=== PATIENT | female | born 1940 | race African-American/Black ===

== ENCOUNTER 2024-08-18 15:07 | Inpatient (IN) | payer OTHER, MEDICARE ==
[~2024-08-18] VITALS: Ht 162.6 cm; Wt 67.1 kg
[2024-08-18 16:28] LABS: BG BASE EXCESS 3.7 mmol/L (-2.0-3.0); BG CARBOXYHEMOGLOBIN 1.9 % (0.5-1.5); BG DEOXYHEMOGLOBIN 0.2 % (0.0-5.0); BG FRACTION INSPIRED OXYGEN 36; BG HCO3 ACT 27.2 mmol/L (21.0-28.0); BG METHEMOGLOBIN 0.3 % (0.5-1.5); BG OXYGEN SATURATION 99.8 % (94.0-98.0); BG OXYHEMOGLOBIN 97.6 % (94.0-98.0); BG PCO2 36.4 mmHg (32.0-45.0); BG PH 7.492 (7.350-7.450); BG PO2 170.5 mmHg (83.0-108.0); BG SAMPLE SITE RIGHT RADIAL; BG TOTAL HEMOGLOBIN 8.3 g/dL (12.0-16.0); BG VENT MODE NASAL CANNULA
[2024-08-18 16:28] LABS: BASOPHILS % 1.1 % (0.0-2.0); EOSINOPHILS % 1.1 % (0.0-5.0); HEMATOCRIT. 27.4 % (36.0-48.0); HEMOGLOBIN. 8.2 g/dL (12.0-16.0); LYMPHOCYTES % 10.4 % (20.0-50.0); MEAN CORPUSCULAR HGB CONC 29.9 g/dL (31.0-37.0); MEAN CORPUSCULAR VOLUME 76.9 fL (81.0-99.0); MEAN PLATELET VOLUME 9.3 fl (7.4-10.4); MONOCYTES % 10.4 % (2.0-8.0); PLATELET 237 x1000/uL (130-400); RED BLOOD CELL COUNT 3.56 mill/uL (4.2-5.4); RED CELL DISTRIBUTION WIDTH 23.4 % (11.6-14.6); WHITE BLOOD COUNT 4.5 x1000/uL (4.5-11.0)
[2024-08-18] MEDS: CEFTRIAXONE 1GM/50ML 50 ML IV NR (16:35)
[2024-08-18 16:41] LABS: ADD RBC MORPHOLOGY YES; DIFFERENTIAL COMMENT 1
[2024-08-18] MEDS: AZITHROMYCIN 500MG/250ML 250 ML IV NR (17:00)
[2024-08-18 17:28] LABS: CARBON DIOXIDE 30 mEq/L (21-32); CHLORIDE 100 mEq/L (98-107); POTASSIUM 4.1 mEq/L (3.5-5.1); SODIUM 137 mEq/L (136-145)
[2024-08-18 17:29] LABS: CALCIUM 8.9 mg/dL (8.7-10.4)
[2024-08-18 17:33] LABS: CREATININE 1.3 mg/dL (0.6-1.0); GLUCOSE 181 mg/dL (70-105); TROPONIN I HIGH SENSITIVITY 12 ng/L (3.0-34)
[2024-08-18 17:34] LABS: UREA NITROGEN BLOOD 24 mg/dL (9-23)
[2024-08-18 17:36] VITALS: PULSE 67; RESP 20
[2024-08-18] MEDS ORDERED: MIDAZOLAM 100MG/100ML PMX 100 ML IV PRN (18:00)
[2024-08-18] MEDS: MIDAZOLAM 100MG/100ML PMX 100 ML IV PRN (18:09)
[2024-08-18 18:52] VITALS: PULSE 59; RESP 20
[2024-08-18 20:48] LABS: ANISOCYTOSIS 2+; HYPOCHROMASIA 1+; MICROCYTOSIS 1+; PLATELET ESTIMATE NORMAL
[2024-08-18 20:55] VITALS: PULSE 62; RESP 20; O2SAT 100
[2024-08-18] MEDS ORDERED: PROPOFOL 10MG/ML 100ML 100 ML IV PRN (22:00)
[2024-08-18 22:27] VITALS: PULSE 60; RESP 20; O2SAT 100
[2024-08-18] MEDS ORDERED: METHYLPREDNISOLONE SOD SUCC 125MG/2ML (ACT-O-VIAL) IV NR (23:45)
[2024-08-19] VITALS (83 sets, daily range): BP systolic 110–152; BP diastolic 49–93; PULSE 50–80; RESP 13–30; TEMP 36.2512–37.28076; O2SAT 93–100
[2024-08-19 01:46] LABS: BG BASE EXCESS 1.4 mmol/L (-2.0-3.0); BG CARBOXYHEMOGLOBIN 1.9 % (0.5-1.5); BG DEOXYHEMOGLOBIN 2.7 % (0.0-5.0); BG FRACTION INSPIRED OXYGEN 100; BG HCO3 ACT 24.3 mmol/L (21.0-28.0); BG METHEMOGLOBIN 0.2 % (0.5-1.5); BG OXYGEN SATURATION 97.2 % (94.0-98.0); BG OXYHEMOGLOBIN 95.2 % (94.0-98.0); BG PCO2 30.9 mmHg (32.0-45.0); BG PH 7.513 (7.350-7.450); BG PO2 92.4 mmHg (83.0-108.0); BG SAMPLE SITE RIGHT BRACHIAL; BG TOTAL HEMOGLOBIN 7.7 g/dL (12.0-16.0); BG VENT MODE VENT - AC
[2024-08-19] MEDS ORDERED: ONDANSETRON HCL 4MG/2ML INJ IV PRN (03:00)
[2024-08-19] MEDS: METHYLPREDNISOLONE SOD SUCC 40MG/ML (ACT-O-VIAL) IV SCH (06:12)
[2024-08-19] MEDS: DEXT 5%/0.45% NACL 1000ML 1,000 ML IV SCH (06:15)
[2024-08-19] MEDS: FUROSEMIDE 40MG/4ML VIAL IVP SCH (08:52)
[2024-08-19] MEDS: ASPIRIN 81MG TABLET PO SCH (08:53)
[2024-08-19] MEDS: ENOXAPARIN 60MG/0.6ML SYR SUBCUT NR (09:28)
[2024-08-19] MEDS: IPRATROPIUM/ALBUTEROL 0.5-3(2.5)MG/3ML NEB HHN SCH (14:38)
[2024-08-19 15:16] LABS: BG BASE EXCESS 2.9 mmol/L (-2.0-3.0); BG CARBOXYHEMOGLOBIN 0.2 % (0.5-1.5); BG DEOXYHEMOGLOBIN 0.7 % (0.0-5.0); BG HCO3 ACT 24.6 mmol/L (21.0-28.0); BG METHEMOGLOBIN 0.3 % (0.5-1.5); BG OXYGEN SATURATION 99.3 % (94.0-98.0); BG OXYHEMOGLOBIN 98.8 % (94.0-98.0); BG PCO2 27.7 mmHg (32.0-45.0); BG PH 7.566 (7.350-7.450); BG PO2 159.2 mmHg (83.0-108.0); BG SAMPLE SITE RIGHT BRACHIAL; BG TOTAL HEMOGLOBIN 9.7 g/dL (12.0-16.0); BG VENT MODE VENT - AC
[2024-08-19] MEDS: CEFTRIAXONE 2GM/50ML 50 ML IV SCH (17:15)
[2024-08-19] MEDS: AZITHROMYCIN 500MG/250ML 250 ML IV SCH (17:16)
[2024-08-19 18:29] LABS: HEMATOCRIT. 27.7 % (36.0-48.0); HEMOGLOBIN. 8.6 g/dL (12.0-16.0); MEAN CORPUSCULAR HEMOGLOBIN 23.4 pg (28.0-32.0); MEAN CORPUSCULAR HGB CONC 31.1 g/dL (31.0-37.0); MEAN CORPUSCULAR VOLUME 75.2 fL (81.0-99.0); MEAN PLATELET VOLUME 9.3 fl (7.4-10.4); PLATELET 274 x1000/uL (130-400); RED BLOOD CELL COUNT 3.69 mill/uL (4.2-5.4); RED CELL DISTRIBUTION WIDTH 23.3 % (11.6-14.6); WHITE BLOOD COUNT 8.9 x1000/uL (4.5-11.0)
[2024-08-19 18:41] LABS: BG BASE EXCESS -0.6 mmol/L (-2.0-3.0); BG DEOXYHEMOGLOBIN 5.2 % (0.0-5.0); BG FRACTION INSPIRED OXYGEN 40; BG HCO3 ACT 21.7 mmol/L (21.0-28.0); BG METHEMOGLOBIN 0.3 % (0.5-1.5); BG OXYGEN SATURATION 94.7 % (94.0-98.0); BG OXYHEMOGLOBIN 93.5 % (94.0-98.0); BG PH 7.522 (7.350-7.450); BG PO2 76.5 mmHg (83.0-108.0); BG SAMPLE SITE RIGHT BRACHIAL; BG TOTAL HEMOGLOBIN 8.8 g/dL (12.0-16.0); BG TOTAL RESPIRATORY RATE 25 b/min; BG VENT MODE VENT - AC
[2024-08-19 18:44] LABS: DIFFERENTIAL COMMENT 1
[2024-08-19 18:47] LABS: CHLORIDE 103 mEq/L (98-107); POTASSIUM 4.4 mEq/L (3.5-5.1); SODIUM 137 mEq/L (136-145)
[2024-08-19 18:48] LABS: CALCIUM 9.3 mg/dL (8.7-10.4); CARBON DIOXIDE 24 mEq/L (21-32)
[2024-08-19 18:49] LABS: INR 1.2; PROTHROMBIN TIME 13.6 sec (9.6-11.0)
[2024-08-19 18:53] LABS: GLUCOSE 188 mg/dL (70-105)
[2024-08-19 18:54] LABS: UREA NITROGEN BLOOD 27 mg/dL (9-23)
[2024-08-19 18:56] LABS: PHOSPHORUS 4.4 mg/dL (2.5-4.9)
[2024-08-19 18:57] LABS: CREATININE 2.3 mg/dL (0.6-1.0)
[2024-08-19 19:16] LABS: ANISOCYTOSIS 2+; GIANT PLATELETS 1+; HYPOCHROMASIA 1+; MICROCYTOSIS 1+; PLATELET ESTIMATE NORMAL
[2024-08-19] MEDS: FENTANYL CITRATE/PF 50MCG/ML 2ML VIAL IV PRN (22:55)
[2024-08-19] MEDS: ATORVASTATIN CALCIUM 20MG TABLET PO SCH (22:57)
[2024-08-20] VITALS (94 sets, daily range): BP systolic 37–145; BP diastolic 19–99; PULSE 65–114; RESP 11–31; TEMP 36.83628–37.33632; O2SAT 88–100
[2024-08-20] MEDS: ENOXAPARIN 60MG/0.6ML SYR SUBCUT SCH (08:28)
[2024-08-20 10:21] LABS: BG BASE EXCESS -1.1 mmol/L (-2.0-3.0); BG CARBOXYHEMOGLOBIN 0.9 % (0.5-1.5); BG DEOXYHEMOGLOBIN 1.3 % (0.0-5.0); BG HCO3 ACT 22.1 mmol/L (21.0-28.0); BG METHEMOGLOBIN 0.3 % (0.5-1.5); BG OXYGEN SATURATION 98.7 % (94.0-98.0); BG OXYHEMOGLOBIN 97.5 % (94.0-98.0); BG PH 7.471 (7.350-7.450); BG PO2 129.9 mmHg (83.0-108.0); BG SAMPLE SITE RIGHT BRACHIAL; BG TOTAL HEMOGLOBIN 8.9 g/dL (12.0-16.0); BG VENT MODE VENT - CPAP
[2024-08-20] MEDS ORDERED: ROSU40TA PO (12:58)
[2024-08-20] MEDS ORDERED: AMLO-337 PO (12:58)
[2024-08-20] MEDS ORDERED: APIX5TAB PO (12:58)
[2024-08-20] MEDS ORDERED: METH-371 PO (12:58)
[2024-08-20] MEDS ORDERED: SERT50TA PO (12:58)
[2024-08-20] MEDS ORDERED: CLOP-31 PO (12:58)
[2024-08-20] MEDS ORDERED: GABA-1180 PO (12:58)
[2024-08-20] MEDS ORDERED: PANT40SU PO (12:58)
[2024-08-20] MEDS ORDERED: CARV12.545 PO (12:58)
[2024-08-20] MEDS ORDERED: FURO-151 PO (12:58)
[2024-08-20] MEDS ORDERED: EZET10TA81 PO (12:58)
[2024-08-20 15:48] LABS: HEMATOCRIT. 25.9 % (36.0-48.0); HEMOGLOBIN. 7.9 g/dL (12.0-16.0); MEAN CORPUSCULAR HGB CONC 30.4 g/dL (31.0-37.0); MEAN CORPUSCULAR VOLUME 75.6 fL (81.0-99.0); MEAN PLATELET VOLUME 9.4 fl (7.4-10.4); PLATELET 271 x1000/uL (130-400); RED BLOOD CELL COUNT 3.42 mill/uL (4.2-5.4); WHITE BLOOD COUNT 14.2 x1000/uL (4.5-11.0)
[2024-08-20 15:50] LABS: DIFFERENTIAL COMMENT 1
[2024-08-20 16:00] LABS: POTASSIUM 4.5 mEq/L (3.5-5.1)
[2024-08-20 16:01] LABS: CALCIUM 8.6 mg/dL (8.7-10.4)
[2024-08-20 16:05] LABS: CREATININE 2.8 mg/dL (0.6-1.0)
[2024-08-20] MEDS: SODIUM CHLORIDE 0.9% (SEPSIS BOLUS) IV ONE (17:57)
[2024-08-20 18:05] LABS: BG BASE EXCESS -14.7 mmol/L (-2.0-3.0); BG CARBOXYHEMOGLOBIN 0.2 % (0.5-1.5); BG DEOXYHEMOGLOBIN 0.7 % (0.0-5.0); BG HCO3 ACT 11.4 mmol/L (21.0-28.0); BG METHEMOGLOBIN 0.3 % (0.5-1.5); BG OXYGEN SATURATION 99.3 % (94.0-98.0); BG OXYHEMOGLOBIN 98.8 % (94.0-98.0); BG PCO2 27.9 mmHg (32.0-45.0); BG PO2 172.1 mmHg (83.0-108.0); BG SAMPLE SITE RIGHT BRACHIAL; BG TOTAL HEMOGLOBIN 9.7 g/dL (12.0-16.0); BG VENT MODE MASK - NRB
[2024-08-20] MEDS: SODIUM BICARBONATE 8.4% 50MEQ/50ML SYR IV NR (18:14)
[2024-08-20 18:27] LABS: ANISOCYTOSIS 2+; HYPOCHROMASIA 1+; MICROCYTOSIS 1+; PLATELET ESTIMATE NORMAL
[2024-08-20 18:28] LABS: GIANT PLATELETS 1+; OVALOCYTES 1+
[2024-08-21] VITALS (78 sets, daily range): BP systolic 98–149; BP diastolic 52–118; PULSE 72–99; RESP 6–23; TEMP 36.44736–36.55848; O2SAT 74–100
[2024-08-21] MEDS: METHYLPREDNISOLONE SOD SUCC 40MG/ML (ACT-O-VIAL) IV SCH (08:44)
[2024-08-21] MEDS: PANTOPRAZOLE SODIUM 40 MG/VIAL IV SCH (08:45)
[2024-08-21] MEDS: ENOXAPARIN 60MG/0.6ML SYR SUBCUT SCH (08:45)
[2024-08-21] MEDS: FENTANYL CITRATE/PF 50MCG/ML 2ML VIAL IV NR (20:14)
[2024-08-21] MEDS: QUETIAPINE FUMARATE 25MG TABLET PO SCH (21:45)
[2024-08-21] MEDS: NALOXONE HCL 0.4MG/ML 1ML VIAL IV NR (22:18)
[2024-08-22] VITALS (15 sets, daily range): BP systolic 116–158; BP diastolic 70–88; PULSE 82–104; RESP 10–20; TEMP 36.114–36.6696; O2SAT 77–100
[2024-08-22] MEDS: ACETAMINOPHEN 325MG TABLET PO PRN (04:59)
[2024-08-22 05:39] LABS: CARBON DIOXIDE 27 mEq/L (21-32); CHLORIDE 100 mEq/L (98-107); POTASSIUM 4.1 mEq/L (3.5-5.1); SODIUM 137 mEq/L (136-145)
[2024-08-22 05:41] LABS: CALCIUM 8.2 mg/dL (8.7-10.4)
[2024-08-22 05:45] LABS: CREATININE 2.8 mg/dL (0.6-1.0); GLUCOSE 107 mg/dL (70-105); UREA NITROGEN BLOOD 46 mg/dL (9-23)
[2024-08-22] MEDS: BLOOD SUGAR DIAGNOSTIC STRIP TEST SCH (05:52)
[2024-08-22 06:58] LABS: TROPONIN I HIGH SENSITIVITY 40 ng/L (3.0-34)
[2024-08-22] MEDS: AMLODIPINE 5MG TABLET PO SCH (09:39)
[2024-08-22 10:36] LABS: DIFFERENTIAL COMMENT 1; HEMATOCRIT. 25.2 % (36.0-48.0); HEMOGLOBIN. 7.6 g/dL (12.0-16.0); MEAN CORPUSCULAR HEMOGLOBIN 23.1 pg (28.0-32.0); MEAN CORPUSCULAR HGB CONC 30.4 g/dL (31.0-37.0); MEAN CORPUSCULAR VOLUME 75.9 fL (81.0-99.0); MEAN PLATELET VOLUME 9.7 fl (7.4-10.4); PLATELET 227 x1000/uL (130-400); RED BLOOD CELL COUNT 3.31 mill/uL (4.2-5.4); RED CELL DISTRIBUTION WIDTH 23.8 % (11.6-14.6)
[2024-08-22] MEDS ORDERED: MORPHINE SULFATE 2 MG/ML INJ (NOT FOR IM USE) IV PRN (14:00)
[2024-08-22] MEDS ORDERED: NALOXONE HCL 0.4MG/ML VIAL IV PRN (15:15)
[2024-08-22] MEDS: MORPHINE SULFATE 2 MG/ML INJ (NOT FOR IM USE) IV NR (15:57)
[2024-08-22] MEDS: MORPHINE SULFATE 2 MG/ML INJ (NOT FOR IM USE) IV PRN (19:59)
[2024-08-22 20:21] LABS: HYPOCHROMASIA 1+; MICROCYTOSIS 1+; PLATELET ESTIMATE NORMAL
[2024-08-23] VITALS (15 sets, daily range): BP systolic 129–154; BP diastolic 60–97; PULSE 76–95; RESP 7–18; TEMP 36.33624–36.6696; O2SAT 95–100
[2024-08-23 05:29] LABS: POTASSIUM 3.6 mEq/L (3.5-5.1)
[2024-08-23 05:30] LABS: CALCIUM 8.7 mg/dL (8.7-10.4)
[2024-08-23 05:35] LABS: CREATININE 2.6 mg/dL (0.6-1.0)
[2024-08-23 05:51] LABS: HEMATOCRIT. 25.1 % (36.0-48.0); HEMOGLOBIN. 7.7 g/dL (12.0-16.0); MEAN CORPUSCULAR HGB CONC 30.6 g/dL (31.0-37.0); MEAN CORPUSCULAR VOLUME 75.2 fL (81.0-99.0); MEAN PLATELET VOLUME 9.3 fl (7.4-10.4); PLATELET 199 x1000/uL (130-400); RED BLOOD CELL COUNT 3.34 mill/uL (4.2-5.4); RED CELL DISTRIBUTION WIDTH 23.6 % (11.6-14.6); WHITE BLOOD COUNT 8.4 x1000/uL (4.5-11.0)
[2024-08-23 06:43] LABS: DIFFERENTIAL COMMENT 1
[2024-08-23] MEDS: FUROSEMIDE 40MG/4ML VIAL IVP NR (09:32)
[2024-08-23 16:47] LABS: HYPOCHROMASIA 1+; MICROCYTOSIS 2+; PLATELET ESTIMATE NORMAL
[2024-08-24] VITALS (15 sets, daily range): BP systolic 133–172; BP diastolic 51–88; PULSE 72–85; RESP 7–17; TEMP 36.3918–36.72516; O2SAT 95–100
[2024-08-24] MEDS: FAMOTIDINE 20MG/2ML VIAL IV SCH (09:17)
[2024-08-24 10:36] LABS: HEMATOCRIT. 26.9 % (36.0-48.0); MEAN CORPUSCULAR HEMOGLOBIN 22.3 pg (28.0-32.0); MEAN CORPUSCULAR HGB CONC 29.7 g/dL (31.0-37.0); MEAN CORPUSCULAR VOLUME 75.3 fL (81.0-99.0); MEAN PLATELET VOLUME 9.1 fl (7.4-10.4); PLATELET 178 x1000/uL (130-400); RED BLOOD CELL COUNT 3.57 mill/uL (4.2-5.4); RED CELL DISTRIBUTION WIDTH 24.2 % (11.6-14.6)
[2024-08-24 10:51] LABS: DIFFERENTIAL COMMENT 1
[2024-08-24 11:21] LABS: POTASSIUM 3.2 mEq/L (3.5-5.1)
[2024-08-24 11:22] LABS: CALCIUM 8.5 mg/dL (8.7-10.4)
[2024-08-24 11:29] LABS: CREATININE 1.7 mg/dL (0.6-1.0)
[2024-08-24] MEDS ORDERED: IPRATROPIUM/ALBUTEROL 0.5-3(2.5)MG/3ML NEB HHN SCH (15:15)
[2024-08-24] MEDS ORDERED: MORPHINE SULFATE 250 MG in DEXT 5% WATER 240 ML IV PRN (15:45)
[2024-08-24] MEDS: MORPHINE SULFATE 2 MG/ML INJ (NOT FOR IM USE) IV NR (16:15)
[2024-08-24 17:30] LABS: ANISOCYTOSIS 2+; GIANT PLATELETS 1+; HYPOCHROMASIA 1+; MICROCYTOSIS 1+; PLATELET ESTIMATE NORMAL
[2024-08-24] MEDS: MORPHINE SULFATE 250 MG in DEXT 5% WATER 225 ML IV PRN (19:04)
[2024-08-24] MEDS: IPRATROPIUM/ALBUTEROL 0.5-3(2.5)MG/3ML NEB HHN SCH (20:22)
[2024-08-24] MEDS: ACETYLCYSTEINE 200MG/ML 20% VIAL 4ML INH SCH (20:22)
[2024-08-25] VITALS (16 sets, daily range): BP systolic 109–150; BP diastolic 54–97; PULSE 59–110; RESP 0–13; TEMP 36.55848–36.83628; O2SAT 85–100
[2024-08-25] MEDS: LORAZEPAM 2MG/ML INJ IV PRN (06:03)
[2024-08-25 12:15] LABS: HEMATOCRIT. 27.6 % (36.0-48.0); HEMOGLOBIN. 7.9 g/dL (12.0-16.0); MEAN CORPUSCULAR HEMOGLOBIN 22.2 pg (28.0-32.0); MEAN CORPUSCULAR HGB CONC 28.6 g/dL (31.0-37.0); MEAN CORPUSCULAR VOLUME 77.7 fL (81.0-99.0); MEAN PLATELET VOLUME 9.1 fl (7.4-10.4); PLATELET 226 x1000/uL (130-400); RED BLOOD CELL COUNT 3.56 mill/uL (4.2-5.4); WHITE BLOOD COUNT 12.9 x1000/uL (4.5-11.0)
[2024-08-25 12:17] LABS: POTASSIUM 3.7 mEq/L (3.5-5.1)
[2024-08-25 12:18] LABS: CALCIUM 8.8 mg/dL (8.7-10.4); DIFFERENTIAL COMMENT 1
[2024-08-25 12:23] LABS: CREATININE 1.9 mg/dL (0.6-1.0)
[2024-08-25 19:33] LABS: HYPOCHROMASIA 1+; MICROCYTOSIS 1+; PLATELET ESTIMATE NORMAL
[2024-08-25] MEDS: MORPHINE SULFATE 250 MG in DEXT 5% WATER 225 ML IV SCH (23:20)
[2024-08-26] VITALS: BP 91/48; PULSE 63; RESP 13; TEMP 36.55848; O2SAT 78
== END 2024-08-26 05:00 | DRG 208 ==
LOC: ER 15:07 → EDBEDREQTM 17:30 → EDBEDREQ 17:30 → EDBEDREQSVC 18:15 → CVICU 08-19 04:47 → 5EST 08-22 00:25
PROVIDERS: ADMIT Internal Medicine; ATTEND Internal Medicine
PROC: 5A1945Z Respiratory Ventilation, 24-96 Consecutive Hours (ICD-10-PCS; principal; 2024-08-18)
PROC: 0BH17EZ Insertion of Endotracheal Airway into Trachea, Via Natural or Artificial Opening (ICD-10-PCS; 2024-08-18)
DX: J96.01 Acute respiratory failure with hypoxia (principal); J18.9 Pneumonia, unspecified organism; G93.41 Metabolic encephalopathy; N17.9 Acute kidney failure, unspecified; J44.0 Chronic obstructive pulmonary disease with (acute) lower respiratory infection; G93.1 Anoxic brain damage, not elsewhere classified; E46 Unspecified protein-calorie malnutrition; R47.01 Aphasia; J91.8 Pleural effusion in other conditions classified elsewhere; I46.9 Cardiac arrest, cause unspecified; I25.10 Atherosclerotic heart disease of native coronary artery without angina pectoris; I48.91 Unspecified atrial fibrillation; Z66 Do not resuscitate; R73.9 Hyperglycemia, unspecified; D64.9 Anemia, unspecified; M24.50 Contracture, unspecified joint; R53.81 Other malaise; E78.00 Pure hypercholesterolemia, unspecified; G83.89 Other specified paralytic syndromes; I07.1 Rheumatic tricuspid insufficiency; I11.0 Hypertensive heart disease with heart failure; I27.20 Pulmonary hypertension, unspecified; I49.01 Ventricular fibrillation; R47.1 Dysarthria and anarthria; R13.10 Dysphagia, unspecified; I50.9 Heart failure, unspecified; R00.1 Bradycardia, unspecified; S90.415A Abrasion, left lesser toe(s), initial encounter; I69.90 Unspecified sequelae of unspecified cerebrovascular disease; Z95.1 Presence of aortocoronary bypass graft; Z74.01 Bed confinement status; Z87.891 Personal history of nicotine dependence; Z95.2 Presence of prosthetic heart valve; Z95.5 Presence of coronary angioplasty implant and graft; X58.XXXA Exposure to other specified factors, initial encounter; Y93.89 Activity, other specified; Y92.89 Other specified places as the place of occurrence of the external cause; Y99.8 Other external cause status
CPT/HCPCS: 36415; 36600; 71045; 76604; 80048; 82375; 82805; 82962; 83735; 83880; 84100; 84145; 84484; 85025; 87070; 92610; 93005; 93306; 94003; 94070; 94640; 97112; 97162; 97166; 98960; 99291; A6261; C1893; J0456; J0696; J1650; J1940; J2060; J2270; J2310; J2470; J2920; J3010; J3490; J7060; J7608